=== PATIENT | male | born 1945 | race Caucasian/White ===

== ENCOUNTER 2024-01-31 10:59 | Emergency (ER) | payer OTHER ==
[2024-01-31 11:14] LABS: Absolute Basophils 0.1 K/uL (0-0.5); Absolute Eosinophils 0.3 K/uL (0-0.5); Absolute Lymphocytes (CBC) 2.2 K/uL (0.7-4.9); Absolute Monocytes 0.5 K/uL (0.1-1.3); Absolute Neutrophil 5.1 K/uL (1.8-8.0); Basophils % 0.7 % (0-1.3); Eosinophils % 3.9 % (0-4.4); Hematocrit 43.9 % (39.6-49.0); Hemoglobin 14.3 g/dL (13.6-17.9); Lymphocytes % 26.8 % (15.3-44.8); MCH 31.5 pg (27.0-35.0); MCHC 32.6 g/dL (32.0-36.0); MCV 96.6 fL (80-100); MPV 7.9 fL (7.6-11.3); Monocytes % 6.6 % (3.3-12.3); Platelets 287 thou/uL (152-406); RBC Red Blood Cell Count 4.55 M/uL (4.33-5.43); Red Cell Distribution Width 13.9 % (12.1-15.2)
--- NOTE | 2024-01-31 11:14 | RAD REPORT ---
EXAM: CT brain without contrast HISTORY: STROKE ALERT COMPARISON: None TECHNIQUE: Multiple contiguous axial images were obtained and a CT of the brain without contrast. Sag ittal and coronal reformats were performed. One or more of the following dose reduction techniques were used: Automated exposure control, adjust ment of the mA and/or kV according to patient size, and/or iterative reconstruction. FINDINGS: No evidence of hydrocephalus, intracranial hemorrhage, or extra-axial fluid collection. Moderate brain atrophy with moderate periventricular and deep white matter chronic microvascular isc hemic changes present. Small 6 mm low-density lesion adjacent to the right frontal horn is likely chronic. No evidence of midline shift or areas of brain edema. The calvarium is intact. The visualized paranasal sinuses and mastoid air cells are essentially clear . IMPRESSION: No evidence of acute intracranial abnormality. The findings were communicated with Dr. Hartley at 01/31/2024 11:11 AM by telephone.
[2024-01-31] MEDS ORDERED: TENECTEPLASE 50 MG/10 ML VIAL IV ONE (11:22)
[2024-01-31 11:25] LABS: PT Prothrombin Time 11.5 SECONDS (9.4-12.5); PTT, Activated Partial Thromb 34.1 SECONDS (24.3-36.9); Protime INR 1.03
--- NOTE | 2024-01-31 11:29 | RAD REPORT ---
EXAMINATION: CTA HEAD CLINICAL INDICATION: slurred speech, LUE numbness TECHNIQUE: Axial CT images were obtained through the head after intravenous contrast utilizing angiog raphic protocol with 3D post-processing (maximum intensity projection images, volume rendered images and/or shaded surface rendered images). One or more of the following dose reduction technique s were used: Automated exposure control, adjustment of the mA and/or kV according to patient size, and/or iterative reconstruction. Unless otherwise specified, incidental findings do not require dedic ated imaging follow-up. COMPARISON: No prior exam. FINDINGS: ICA: The petrous, cavernous, and supraclinoid segments of the bilateral internal carotid arteries are normal. The ophthalmic artery origins are visualized and normal. The posterior communicating arteries are patent. ELDER: Anterior cerebral arteries are normal bilaterally. The anterior communicating artery is patent. MCA: Middle cerebral arteries are normal bilaterally. SUPERVISOR DYER: Posterior cerebral arteries are normal bilaterally. Vertebrobasilar: The vertebral arteries are patent. The basilar artery demonstrates proximal fenestra tion without flow abnormality. 3D images confirm these findings. IMPRESSION: No significant flow abnormality is identified.
[2024-01-31 11:32] LABS: Troponin High Sensitivity 26.4 pg/mL (<58.9)
--- NOTE | 2024-01-31 11:34 | RAD REPORT ---
EXAMINATION: CTA NECK CLINICAL INDICATION: L sided deficits TECHNIQUE: Axial CT images were obtained from the aortic arch to the skull base after intravenous con trast utilizing angiographic protocol with 3D post-processing (maximum intensity projection images, volume rendered images and/or shaded surface rendered images). One or more of the following dose redu ction techniques were used: Automated exposure control, adjustment of the mA and/or kV according to patient size, and/or iterative reconstruction. Unless otherwise specified, incidental findings do not require dedicated imaging follow-up. COMPARISON: No prior exam. FINDINGS: AORTA: The imaged aortic arch is normal. CCA: The common carotid arteries are patent and normal in caliber. ICA/ECA: Small hard plaque is seen right carotid bulb. No significant carotid stenosis seen bilateral ly. VERTEBRAL: The cervical vertebral arteries are patent. The vertebral arteries are codominant. SOFT TISSUE: No significant neck soft tissue abnormalities. The visualized lung apices are clear. Mod erate paranasal sinus fluid. 3D images confirm these findings. IMPRESSION: No significant flow abnormality of the neck vessels is identified. NASCET criteria used. Mild 0-49% stenosis Moderate 50-69% stenosis Severe 70-99% stenosis
--- NOTE | 2024-01-31 12:22 | ER ---
Nurse's Notes [facility] Name: Shan Anotnio Age: 78 yrs Sex: Male : 1945 Arrival Date: 01/31/2024 Time: 10:59 Bed 3 Private MD: Diagnosis: Stroke, Slurred Speech, Left Arm Numbness, Received TNK Presentation: 01/30 11:01 Chief complaint: EMS states: Toned out for possible ID, EKG NSR. Pt reporting left jl7 sided facial and arm numbness, [id number] [id number]. Coronavirus screen: At this time, the client does not indicate any symptoms associated with coronavirus-19. Ebola Screen: No symptoms or risks identified at this time. An acute neurological deficit is present. The charge nurse has been notified. The patient has been moved to a treatment area. The patients blood glucose was checked before arriving to the hospital and was found to be normal. Initial Sepsis Screen: Does the patient meet any 2 criteria? No. Patient's initial sepsis screen is negative. Does the patient have a suspected source of infection? No. Patient's initial sepsis screen is negative. Risk Assessment: Do you want to hurt yourself or someone else? Patient reports no desire to harm self or others. Onset of symptoms was January 31, 2024 at 09:00. 11:01 Method Of Arrival: EMS: [facility] 7 11:01 Acuity: HORACIO 2 jl7 Triage Assessment: 11:03 The onset of the patients symptoms was January 31, 2024 at 09:00. General: Appears in jl7 no apparent distress. uncomfortable, Behavior is calm, cooperative, appropriate for age. Pain: Denies pain. Neuro: Reports numbness in face and left arm. Stroke Activation: Physician: ED Attending; Name: Lange; Notified At: ; Arrived At: Physician: Mid-Level Provider; Name: ; Notified At: ; Arrived At: Physician: [not used]; Name: ; Notified At: ; Arrived At: Physician: [not used]; Name: ; Notified At: ; Arrived At: Physician: [not used]; Name: ; Notified At: ; Arrived At: Historical: - Allergies: 11:03 No Known Allergies; jl7 - Immunization history:: Adult Immunizations unknown. - Infectious Disease History:: Denies. - Social history:: Smoking status: Patient denies any tobacco usage or history of. Screenin:15 [facility] ED Fall Risk Assessment (Adult) History of falling in the last 3 months, ll1 including since admission No falls in past 3 months (0 pts) Confusion or Disorientation No (0 pts) Intoxicated or Sedated No (0 pts) Impaired Gait Yes (1 pt) Mobility Assist Device Used Yes (1 pt) Altered Elimination Yes (1 pt) Score/Fall Risk Level 3 or more points = High Risk Maintained a safe environment, Hourly rounding (assess needs \T\ fall precautionary measures) done, Used ambulatory aids as needed (educated on \T\ assisted with). Abuse screen: Denies threats or abuse. Nutritional screening: No deficits noted. Tuberculosis screening: No symptoms or risk factors identified. Assessment: 11:15 VAN Scoring: Visual Disturbance: No visual disturbance noted. Aphasia: No aphasia ll1 noted. Anderson Swallow Protocol Brief Cognitive Screen What is your name? Normal, Where are you right now? Normal, What year is it? Normal. Oral Mechanism Examination Facial Symmetry: Normal, Motion: Normal, Lip Closure: Normal, 3 oz Water Swallow Challenge: Pt able to drink all water without stopping, coughing, choking or throat clearing: Yes Result: PASS MD Notified: Haider Lange MD. TNKase (Tenecteplase) Screening: Indications: Treatment will start within 4.5 hours onset of symptoms: Yes. 11:34 Reassessment: No changes from previously documented assessment. Patient and/or family ll1 updated on plan of care and expected duration. Pain level reassessed. Patient is alert, oriented x 3, equal unlabored respirations, skin warm/dry/pink. 15:07 Shwetha Swallow Protocol Exclusion Criteria: Unable to remain alert for testing: No NPO ll1 for medical/surgical reason by provider order No Tracheostomy tube present No No thin liquids due to preexisting dysphagia/baseline modified diet thickened liquids No Exclusion Criteria Result: Proceed. 15:44 Reassessment: No changes from previously documented assessment. Patient and/or family ll1 updated on plan of care and expected duration. Pain level reassessed. Vital Signs: 11:15 BP 160 / 87; Pulse 81; Resp 18; Temp 97.2; Pulse Ox 96% on R/A; Weight 115.21 kg; Pain ll1 0/10; 11:34 BP 137 / 87; ec2 12:15 BP 137 / 79; Pulse 73; Resp 18; Pulse Ox 97% on R/A; ll1 13:02 BP 153 / 79; Pulse 74; Resp 17; Pulse Ox 96% on R/A; ll1 14:00 BP 140 / 80; Pulse 67; Resp 18; Pulse Ox 96% on R/A; ll1 15:00 BP 130 / 80; Pulse 81; Resp 17; Pulse Ox 96% on R/A; ll1 15:44 BP 139 / 68; Pulse 76; Resp 17; Temp 97.4; Pulse Ox 96% ; Pain 0/10; ll1 11:15 Pain Scale: Adult ll1 15:44 Pain Scale: Adult ll1 NIH Stroke Scale Scores: 11:15 NIHSS Score: 3 ll1 12:22 NIHSS Score: 3 ec2 ED Course: 11:00 Patient arrived in ED. ec2 11:00 Haider Lange MD is Attending Physician. ec2 11:03 Triage completed. jl7 11:03 Arm band placed on right wrist. jl7 11:10 Patient has correct armband on for positive identification. Bed in low position. Call ll1 light in reach. Provided Education on: ER procedures and process. Client placed on continuous cardiac and pulse oximetry monitoring. NIBP monitoring applied. artificial candy maker on. 11:15 CT Head Angio In Process Unspecified. EDMS 11:15 CT Neck Angio In Process Unspecified. EDMS 11:17 Denia Bronson, HERMILO is Primary Nurse. ll1 11:33 Maintain EMS IV. Dressing intact. Good blood return noted. Site clean \T\ dry. Gauge \T\ ll 1 site: 20 L AC. 12:00 Inserted saline lock: 22 gauge in left hand, using aseptic technique. Flushed with 10 em1 mL NS. 12:29 initiated a transfer with Maria T Sosa from the [place] [facility]. eb 12:31 Stroke CXR 1 View In Process Unspecified. EDMS 12:40 faxed patient clinical information to Maria T at [phone]. eb 13:[address] Thomas the doctor main galley scullion for [place] ED with Dr. Lange for patient transfer eb consultation. 13:45 administrative approval given by Nita De Leon Rn/ patient has been accepted to the [facility] ER/ Dr. Kendall Thomas has accepted the patient in transfer / report to be called to [phone] ext [phone]. 14:39 [facility] to call report to [facility]. On hold for over 10 minutes, will try again. ll1 14:58 Tried to call report two more times, after ringing for approximately 5 minutes both ll1 times, it hung up on me. 15:06 No provider procedures requiring assistance completed. Patient transferred, IV remains ll1 in place. Administered Medications: 11:32 Drug: TNK FOR STROKE - Tenecteplase IV (Administer 10 ml NS flush BEFORE and ll1 AFTER tenecteplase) 25 mg IV at per protocol once; 0.25mg/kg, MAX DOSE 25 mg, IVP over 5 seconds {Co-Signature: jl7 (Delonte Reyes RN).} Route: IV; Rate: per protocol; Site: left antecubital; 14:03 Follow up: Response: No adverse reaction; IV Status: Completed infusion; IV Intake: 5ml ll1 Medication: 15:07 VIS not applicable for this client. ll1 Point of Care Testin:07 pre hospital WNL ll1 Ranges: Intake: 14:03 IV: 5ml; Total: 5ml. ll1 Outcome: 12:21 ER care complete, transfer ordered by . ec2 15:06 Transferred by ground EMS to [facility] Transfer form completed. ll1 Note: Jacob Huber RN at [place] ED 15:06 Condition: stable 15:06 Instructed on the need for transfer, 15:46 Patient left the ED. ll1 NIH Stroke Scale - NIH Stroke Score Date: 01/31/2024 Time: 11:15 Total Score = 3 10. Dysarthria (speech clarity - read or repeat words) - 1(Mild to Moderate) 11. Extinction and Inattention (visual/tactile/auditory/spatial/personal) - 0(No abnormality) 1a. Level of Consciousness (LOC) - 0(Alert) 1b. Level of Consciousness (LOC) (Month \T\ Age) - 0(Both) 1c. LOC Commands (Open \T\ Closes Eyes/Support Group Manager) - 0(Both) 2. Best Gaze (Lateral Gaze Paresis) - 0(Normal) 3. Visual Field Loss - 0(No visual loss) 4. Facial Palsy - 1(Minor Paralysis) 5a. Left Arm: Motor (10-second hold) - 0(No drift) 5b. Right Arm: Motor (10-second hold) - 0(No drift) 6a. Left Leg: Motor (5-second hold - always test supine) - 0(No drift) 6b. Right Leg: Motor (5-second hold - always test supine) - 0(No drift) 7. Limb Ataxia (finger/nose \T\ heel/jones - test with eyes open) - 0(Absent) 8. Sensory Loss (pinprick arms/legs/face) - 1(Mild to moderate loss) 9. Best Language: Aphasia (description/naming/reading) - 0(No aphasia) Initials: ll1 NIH Stroke Scale - NIH Stroke Score Date: 01/31/2024 Time: 12:22 Total Score = 3 10. Dysarthria (speech clarity - read or repeat words) - 1(Mild to Moderate) 11. Extinction and Inattention (visual/tactile/auditory/spatial/personal) - 0(No abnormality) 1a. Level of Consciousness (LOC) - 0(Alert) 1b. Level of Consciousness (LOC) (Month \T\ Age) - 0(Both) 1c. LOC Commands (Open \T\ Closes Eyes/Support Group Manager) - 0(Both) 2. Best Gaze (Lateral Gaze Paresis) - 0(Normal) 3. Visual Field Loss - 0(No visual loss) 4. Facial Palsy - 1(Minor Paralysis) 5a. Left Arm: Motor (10-second hold) - 0(No drift) 5b. Right Arm: Motor (10-second hold) - 0(No drift) 6a. Left Leg: Motor (5-second hold - always test supine) - 0(No drift) 6b. Right Leg: Motor (5-second hold - always test supine) - 0(No drift) 7. Limb Ataxia (finger/nose \T\ heel/jones - test with eyes open) - 0(Absent) 8. Sensory Loss (pinprick arms/legs/face) - 1(Mild to moderate loss) 9. Best Language: Aphasia (description/naming/reading) - 0(No aphasia) Initials: ec2 Signatures: Dispatcher [employer] EDGeoffrey Forde em1 Delonte Reyes RN RN jl7 Jen Mcintosh Lynsay, RN RN ll1 Haider Lange MD MD ec2 Delonte Reyes RN jl7 Corrections: (The following items were deleted from the chart) 15:46 15:44 BP 139 / 68; Pulse 76bpm; Resp 17bpm; Pulse Ox 96%; Temp 97.4F; Pain ll1 0/10, Adult; ll1
--- NOTE | 2024-01-31 12:22 | EDPHYS ---
Physician Documentation [facility] Name: Shan Antonio Age: 78 yrs Sex: Male : 1945 Arrival Date: 01/31/2024 Time: 10:59 Bed 3 Private MD: ED Physician Haider Lange HPI: 01/30 11:03 This 78 yrs old Male presents to ER via EMS with complaints of S/S of Possible Stroke. ec2 11:03 Patient arrives today due to concern for possible stroke symptoms. Last known well of ec2 approximately 2 hours ago or 9 AM. Patient reports that he felt left upper extremity and left lower extremity numbness and tingling. No significant medical problems, no daily medications, no anticoagulants or antiplatelet agents.. Historical: - Allergies: 11:03 No Known Allergies; jl7 - Immunization history:: Adult Immunizations unknown. - Infectious Disease History:: Denies. - Social history:: Smoking status: Patient denies any tobacco usage or history of. ROS: 11:03 Constitutional: as per hpi ec2 Exam: 11:03 Constitutional: GEN: NAD Head: atraumatic Eyes: EOMI Ears: External ears are ec2 normal. CV: regular rate LUNGS: no respiratory distress ABD: non-distended SKIN: no evidence of rashes MSK: no evidence of trauma. Neuro: Cranial nerves II through XII with possible left-sided facial droop, slurred speech appreciated, subjective numbness to left upper extremity. Strength intact in bilateral upper and lower extremities. 11:34 Radiologist reports: negative ec2 Vital Signs: 11:15 BP 160 / 87; Pulse 81; Resp 18; Temp 97.2; Pulse Ox 96% on R/A; Weight 115.21 kg; Pain ll1 0/10; 11:34 BP 137 / 87; ec2 12:15 BP 137 / 79; Pulse 73; Resp 18; Pulse Ox 97% on R/A; ll1 13:02 BP 153 / 79; Pulse 74; Resp 17; Pulse Ox 96% on R/A; ll1 14:00 BP 140 / 80; Pulse 67; Resp 18; Pulse Ox 96% on R/A; ll1 15:00 BP 130 / 80; Pulse 81; Resp 17; Pulse Ox 96% on R/A; ll1 15:44 BP 139 / 68; Pulse 76; Resp 17; Temp 97.4; Pulse Ox 96% ; Pain 0/10; ll1 11:15 Pain Scale: Adult ll1 15:44 Pain Scale: Adult ll1 NIH Stroke Scale Scores: 11:15 NIHSS Score: 3 ll1 12:22 NIHSS Score: 3 ec2 MDM: 11:00 Medical Screening Exam initiated ec2 11:03 Data reviewed: vital signs, nurses notes. ED course: Patient arrives today for ec2 evaluation of numbness. Examination yields neurologic findings as above. Stroke workup ordered on arrival, will obtain CT scan of the head, CT angio of the head and neck, considering TNK. 11:26 TNKase (Tenecteplase) Screening: Indications: Definite evidence of stroke, ischemic, ec2 embolic, or hypertensive: Yes. Treatment will start within 4.5 hours onset of symptoms: Yes. No evidence of intracranial hemorrhage or CT of head and no evidence of peripheral hemorrhage or recent CVA: Yes. Consent for thrombolytic therapy: Yes. ED course: CT scan of the head negative. I had a discussion regarding risk and benefits and given TNK, patient with appropriate criteria, will proceed with given TN K. Patient and daughter agreeable.. 12:19 ED course: On reassessment patient remains stable, although still remains with a slight ec2 slurring of speech, will admit for ICU placement.. 12:20 ED course: Currently have no ICU capabilities at our facility, will transfer to ICU ec2 capable facility.. 12:25 ED course: Patient reports that he gets all of his care at the [facility] and would like to ec2 attempt transfer there. Will attempt transfer there.. 13:47 ED course: I discussed the case with [facility] physician who agrees accept the patient for ec2 transfer.. 01/30 11:01 Order name: Basic Metabolic Panel; Complete Time: : ec2 01/30 11:01 Order name: CBC with Diff; Complete Time: ec2 01/30 11: Order name: High Sensitivity Troponin; Complete Time: : ec2 01/30 11:01 Order name: Protime (+inr); Complete Time: : ec2 01/30 11:01 Order name: Ptt, Activated; Complete Time: ec2 01/30 11:01 Order name: CT Head Angio; Complete Time: : ec2 01/30 11:01 Order name: CT Neck Angio; Complete Time: 11:36 ec2 01/30 11:01 Order name: CT Stroke Brain w/o Contrast ec2 01/30 11:01 Order name: Stroke CXR 1 View; Complete Time: 12:51 ec2 01/30 11:14 Order name: CT; Complete Time: 11:26 EDMS 01/30 11:01 Order name: Accucheck; Complete Time: 11:17 ec2 01/30 11:01 Order name: Cardiac monitoring; Complete Time: 11:32 ec2 01/30 11:01 Order name: EKG - Nurse/Tech; Complete Time: 11:32 ec2 01/30 11:01 Order name: IV Saline Lock; Complete Time: 11:17 ec2 01/30 11:01 Order name: Labs collected and sent; Complete Time: 11:17 ec2 01/30 11:01 Order name: NPO; Complete Time: 11:17 ec2 01/30 11:01 Order name: O2 Per Protocol; Complete Time: 11:32 ec2 01/30 11:01 Order name: O2 Sat Monitoring; Complete Time: 11:32 ec2 01/30 11:01 Order name: Stroke Swallow Screen; Complete Time: 11:43 ec2 Administered Medications: 11:32 Drug: TNK FOR STROKE - Tenecteplase IV (Administer 10 ml NS flush BEFORE and ll1 AFTER tenecteplase) 25 mg IV at per protocol once; 0.25mg/kg, MAX DOSE 25 mg, IVP over 5 seconds {Co-Signature: jl7 (Delonte Reyes RN).} Route: IV; Rate: per protocol; Site: left antecubital; 14:03 Follow up: Response: No adverse reaction; IV Status: Completed infusion; IV Intake: 5ml ll1 Point of Care Testin:07 pre hospital WNL ll1 Ranges: Critical Glucose Levels:Adult <50 mg/dl or >400 mg/dl <40 mg/dl or >180 mg/dl Disposition Summary: 01/31/24 12:21 Transfer Ordered Notes: Transfer Location: Other Acute Care Facility ec2 Reason: Higher level of care ec2 Condition: Stable ec2 Problem: new ec2 Symptoms: have improved ec2 Accepting Physician: transferring doc(12/24/24 15:46) ll1 Diagnosis - Stroke, Slurred Speech, Left Arm Numbness, Received TNK ec2 Forms: - Medication Reconciliation Form ec2 - SBAR form ec2 Critical care time excluding procedures: 11:34 Critical care time: Bedside Care: 30 minutes. Total time: 30 minutes ec2 NIH Stroke Scale - NIH Stroke Score Date: 01/31/2024 Time: 11:15 Total Score = 3 10. Dysarthria (speech clarity - read or repeat words) - 1(Mild to Moderate) 11. Extinction and Inattention (visual/tactile/auditory/spatial/personal) - 0(No abnormality) 1a. Level of Consciousness (LOC) - 0(Alert) 1b. Level of Consciousness (LOC) (Month \T\ Age) - 0(Both) 1c. LOC Commands (Open \T\ Closes Eyes/Electromatic Typist) - 0(Both) 2. Best Gaze (Lateral Gaze Paresis) - 0(Normal) 3. Visual Field Loss - 0(No visual loss) 4. Facial Palsy - 1(Minor Paralysis) 5a. Left Arm: Motor (10-second hold) - 0(No drift) 5b. Right Arm: Motor (10-second hold) - 0(No drift) 6a. Left Leg: Motor (5-second hold - always test supine) - 0(No drift) 6b. Right Leg: Motor (5-second hold - always test supine) - 0(No drift) 7. Limb Ataxia (finger/nose \T\ heel/jones - test with eyes open) - 0(Absent) 8. Sensory Loss (pinprick arms/legs/face) - 1(Mild to moderate loss) 9. Best Language: Aphasia (description/naming/reading) - 0(No aphasia) Initials: ll1 NIH Stroke Scale - NIH Stroke Score Date: 01/31/2024 Time: 12:22 Total Score = 3 10. Dysarthria (speech clarity - read or repeat words) - 1(Mild to Moderate) 11. Extinction and Inattention (visual/tactile/auditory/spatial/personal) - 0(No abnormality) 1a. Level of Consciousness (LOC) - 0(Alert) 1b. Level of Consciousness (LOC) (Month \T\ Age) - 0(Both) 1c. LOC Commands (Open \T\ Closes Eyes/Electromatic Typist) - 0(Both) 2. Best Gaze (Lateral Gaze Paresis) - 0(Normal) 3. Visual Field Loss - 0(No visual loss) 4. Facial Palsy - 1(Minor Paralysis) 5a. Left Arm: Motor (10-second hold) - 0(No drift) 5b. Right Arm: Motor (10-second hold) - 0(No drift) 6a. Left Leg: Motor (5-second hold - always test supine) - 0(No drift) 6b. Right Leg: Motor (5-second hold - always test supine) - 0(No drift) 7. Limb Ataxia (finger/nose \T\ heel/jones - test with eyes open) - 0(Absent) 8. Sensory Loss (pinprick arms/legs/face) - 1(Mild to moderate loss) 9. Best Language: Aphasia (description/naming/reading) - 0(No aphasia) Initials: ec2 Signatures: Dispatcher [employer] Delonte Villareal RN RN jl7 Denia Bronson RN RN ll1 Haider Lange MD MD ec2 Delonte Reyes RN jl7 Corrections: (The following items were deleted from the chart) 15:46 12:21 transferring doc ec2 ll1
--- NOTE | 2024-01-31 12:46 | RAD REPORT ---
Procedure: Chest Single View HISTORY: Code stroke COMPARISON: none FINDINGS: The lungs appear clear of acute infiltrate. No significant pleural effusion noted.. Calcified hilar lymph nodes. The heart is probably upper limits normal size. IMPRESSION: No acute abnormality is displayed.
[2024-01-31 16:23] VITALS: O2SAT 96
[2024-01-31 16:29] VITALS: BP 139/68; TEMP 97.4
--- NOTE | 2024-02-03 13:44 | EKG ---
Test Date: 2024-01-31 Test Time: 11:20:41 Pharmacy Tech: LML MEASUREMENT RESULTS: Intervals: Rate: 87 MS: 210 QRSD: 102 QT: 382 QTc: 459 [place]: P: 35 MS: 210 QRS: -45 T: 53 INTERPRETIVE STATEMENTS: Sinus rhythm with 1st degree AV block with occasional and consecutive premature ventricular complexes Left anterior fascicular block Abnormal ECG No previous ECG available for comparison Electronically Signed On 02-03-24 13:38:03 HORTICULTURE INSTRUCTOR by Giacomo Abernathy
== END 2024-01-31 15:46 ==
LOC: ER 10:59
DX: I63.9 Cerebral infarction, unspecified (principal); R47.81 Slurred speech; R20.0 Anesthesia of skin; R29.703 NIHSS score 3
CPT/HCPCS: 96365; 92977; 93005; 85025; 80048; 36415; 85610; 82565; 82947; 85730; 84484; 70496; 70498; 70450; 71045; 99291; 96366; Q9967; J3101